=== PATIENT | female | born 1985 | race Caucasian/White ===

== ENCOUNTER 2023-08-30 01:12 | Emergency (ER) | payer MEDICAID ==
[~2023-08-30] VITALS: Ht 162.6 cm; Wt 96.4 kg
[2023-08-30 01:21] VITALS: TEMP 97.5
[2023-08-30] MEDS: triamcinolone acetonide 40mg/ml inj IM ONE (04:51)
[2023-08-30] MEDS: dexamethasone sod phosphate 10mg/ml inj IM STA (04:52)
[2023-08-30 04:57] VITALS: BP 144/98; PULSE 90; RESP 16; O2SAT 98
[2023-08-31] MEDS ORDERED: PRED20TA PO (01:34)
== END 2023-08-30 04:58 | disposition home or self-care (01) ==
LOC: ER 01:14
DX: L50.9 Urticaria, unspecified (principal); Z79.899 Other long term (current) drug therapy
CPT/HCPCS: 96372; 99284; J1100; J3301

== ENCOUNTER 2023-08-30 23:36 | Emergency (ER) | payer MEDICAID ==
[~2023-08-30] VITALS: Ht 162.6 cm; Wt 96.0 kg
[2023-08-30] MEDS ORDERED: famotidine 10mg/ml inj IV ONE (23:55)
[2023-08-31] MEDS ORDERED: famotidine/PF 10 mg/ml inj IV SCH (00:06)
[2023-08-31] MEDS: epiNEPHrine 1 mg/ml inj IM STA (00:29)
[2023-08-31] MEDS: famotidine/PF 10 mg/ml inj IV ONE (00:35)
[2023-08-31] MEDS: diphenhydrAMINE 50 mg/ml inj IV ONE (00:35)
[2023-08-31] MEDS: dexamethasone sod phosphate 10mg/ml inj IV STA (00:35)
[2023-08-31] MEDS ORDERED: PRED20TA PO (01:34)
[2023-08-31 01:47] VITALS: BP 146/92; PULSE 106; RESP 16; TEMP 97.8; O2SAT 95
[2023-09-01] MEDS ORDERED: DIPH25CA51 PO (14:53)
[2023-09-01] MEDS ORDERED: BENCRM TOP (14:53)
[2023-09-01] MEDS ORDERED: LORA10TA65 PO (14:53)
== END 2023-08-31 01:56 | disposition home or self-care (01) ==
LOC: ER 23:37
DX: T78.49XA Other allergy, initial encounter (principal); Z79.899 Other long term (current) drug therapy; X58.XXXA Exposure to other specified factors, initial encounter
CPT/HCPCS: 96372; 96374; 96375; 99284; J0171; J1100; J1200; J3490

== ENCOUNTER 2023-09-01 12:38 | Emergency (ER) | payer MEDICAID ==
[~2023-09-01] VITALS: Ht 157.5 cm; Wt 93.5 kg
[~2023-09-01 12:38] MED LIST: PRED20TA PO
[2023-09-01 12:41] VITALS: BP 159/101; PULSE 115; RESP 16; TEMP 98; O2SAT 99
[2023-09-01] MEDS: diphenhydrAMINE 50 mg/ml inj IM ONE (13:18)
[2023-09-01] MEDS: dexamethasone 4mg tablet PO ONE (13:19)
[2023-09-01 14:26] LABS: BASOPHILS # (AUTO) 0.2 X10'3 (0-0.2); BASOPHILS % (AUTO) 1.3 % (0-1); EOSINOPHILS % (AUTO) 0.3 % (0-6); HEMATOCRIT 41.2 % (35.0-45.0); HEMOGLOBIN 13.1 g/dl (12.0-16.0); LYMPHOCYTES # (AUTO) 3.5 X10'3 (1.1-4.8); LYMPHOCYTES % (AUTO) 21.3 % (21-51); MEAN CORPUSCULAR HGB CONC 31.9 g/dL (33.0-36.5); MEAN CORPUSCULAR VOLUME 87.7 FL (78-98); MEAN PLATELET VOLUME 7.1 FL (7.4-10.4); MONOCYTES # (AUTO) 0.9 X10'3 (0-0.9); MONOCYTES % (AUTO) 5.6 % (2-12); NEUTROPHILS # (AUTO) 11.8 X10'3 (1.8-7.7); NEUTROPHILS % (AUTO) 71.5 % (42-75); PLATELET COUNT 368 X10'3 (140-440); WHITE BLOOD COUNT 16.5 X10'3 (4.5-11.0)
[2023-09-01 14:28] LABS: ALBUMIN 3.1 G/DL (3.4-5.0); ANION GAP 10 (8-16); BLOOD UREA NITROGEN 16 MG/DL (7-18); BUN/CREATININE RATIO 21.3 (10.0-20.0); CALCIUM 8.7 MG/DL (8.5-10.1); CHLORIDE 110 MMOL/L (99-107); CREATININE 0.75 MG/DL (0.40-0.90); GLUCOSE 100 MG/DL (70-104); POTASSIUM 3.5 MMOL/L (3.5-5.1); SODIUM 145 MMOL/L (135-145); TOTAL CARBON DIOXIDE 25.1 MMOL/L (24-32); eCRCL 81 ML/MIN; eGFR 87 ML/MIN
[2023-09-01] MEDS ORDERED: LORA10TA65 PO (14:53)
[2023-09-01] MEDS ORDERED: DIPH25CA51 PO (14:53)
[2023-09-01] MEDS ORDERED: BENCRM TOP (14:53)
[2023-09-01 15:37] LABS: PLATELET ESTIMATE NORMAL; TOTAL CELLS COUNTED 100
== END 2023-09-01 14:59 | disposition home or self-care (01) ==
LOC: ER 12:39
DX: T78.40XD Allergy, unspecified, subsequent encounter (principal); Z79.899 Other long term (current) drug therapy
CPT/HCPCS: 36415; 80048; 85007; 85025; 96372; 99283; J1200